=== PATIENT | male | born 1955 | race African-American/Black ===

== ENCOUNTER 2025-06-11 16:12 | Emergency (ER) | payer OTHER, MEDICAID ==
[~2025-06-11] VITALS: Ht 182.9 cm; Wt 82.0 kg
[2025-06-11 16:17] VITALS: O2SAT 99
[2025-06-11 18:47] LABS: HEMATOCRIT. 46.3 % (42.0-52.0); HEMOGLOBIN. 15.0 g/dL (14.0-18.0); MEAN PLATELET VOLUME 8.7 fl (7.4-10.4); PLATELET 223 x1000/uL (130-400); RED BLOOD CELL COUNT 5.10 mill/uL (4.7-6.1); RED CELL DISTRIBUTION WIDTH 16.3 % (11.6-14.6)
[2025-06-11 18:57] LABS: INR 1.4
[2025-06-11 19:00] LABS: CREATININE 1.2 mg/dL (0.6-1.3); UREA NITROGEN BLOOD 19 mg/dL (9-23)
[2025-06-11 19:02] LABS: TROPONIN I HIGH SENSITIVITY 19 ng/L (3.0-53)
[2025-06-11 19:03] LABS: BAND% 2.0 % (1.0-6.0); LYMPHOCYTES % MANUAL 1.0 % (20.0-50.0); MONOCYTES % MANUAL 7.0 % (2.0-8.0); NEUTROPHILS % MANUAL 90.0 % (45.0-75.0); PLATELET ESTIMATE NORMAL
[2025-06-11] MEDS: MORPHINE SULFATE 4 MG/ML INJ (FOR IV/IM USE) IV ONE (19:25)
[2025-06-11] MEDS: PIPERACILLIN/TAZO 3.375G/50ML 50 ML IV ONE (19:27)
[2025-06-11] MEDS: FUROSEMIDE 40MG/4ML VIAL IVP ONE (20:19)
[2025-06-11] MEDS: VANCOMYCIN 1G PREMIX 200 ML IV ONE (20:19)
[2025-06-11] MEDS: DILTIAZEM HCL 5MG/ML 5ML VIAL IV ONE (20:30)
[2025-06-11] MEDS: DILTIAZEM HCL 30MG TABLET PO ONE (22:22)
[2025-06-11] MEDS: KETOROLAC 30MG/ML VIAL IV ONE (23:14)
[2025-06-11 23:42] VITALS: BP 108/83; PULSE 98; RESP 20; O2SAT 98
== END 2025-06-12 00:20 | disposition short-term general hospital (02) ==
LOC: ER 16:12 → CMPBEDREQ 06-12 07:34
DX: R60.0 Localized edema (principal); M79.605 Pain in left leg; M79.604 Pain in right leg; I50.9 Heart failure, unspecified; I87.8 Other specified disorders of veins; L03.90 Cellulitis, unspecified; Z87.891 Personal history of nicotine dependence; Z99.81 Dependence on supplemental oxygen
CPT/HCPCS: 99291; 96365; 96375; 96367; 80048; 83880; 83605; 85025; 85610; 85730; 87040; 84484; 36415; 84145; 71045; 93005; J1885; J3490; J1938; J2543; J3373; J2270